=== PATIENT | female | born 1945 | race Caucasian/White ===

== ENCOUNTER 2019-09-05 10:52 | Inpatient (IN) | payer MEDICARE, MEDICAID ==
[~2019-09-05] VITALS: Ht 165.1 cm; Wt 84.2 kg
[~2019-09-05 10:52] MED LIST: ACETAMINOPHEN W1 TA6 PO; AMBIEN 5MG TABLE5 MG PO; FLONASE NASAL S16 GM NS; IPRATROPIUM BROM3 M1 IH; LANTUS100 U/ML SQ; METFORMIN500 MG PO; PERFOROMIS20 MCG/2 M IH; PREDNISONE20 MG PO; PRILOSEC 20MG20 MG PO; PROVENTIL0.09 MG/A1 IH; PROZAC20 MG PO; PULMICORT0.5 MG/2 M IH; SINGULAIR10 MG PO; SKELAXIN800 MG PO; SYNTHROID0.075 MG PO; TRAZADONE HYDR100 MG PO; ZITHROMAX500 M2 PO; ZYRTEC10 MG PO
[2019-09-05] MEDS ORDERED: LASIX 20MG TABL20 MG PO (11:16)
[2019-09-05] MEDS ORDERED: DULCOLAX STOOL100 MG PO (11:20)
[2019-09-05] MEDS ORDERED: CARDIZEM CD 12120 MG PO (11:21)
[2019-09-05] MEDS ORDERED: CYMBALTA 60MG60 MG PO (11:22)
[2019-09-05 11:23] LABS: BASO % 0.4 % (0.0-2.0); EOS # 0.1 (0.0-0.7); EOS % 0.8 % (0-4.0); GRAN # 5.4 (1.4-6.5); GRAN % 75.8 % (42.2-75.2); HEMATOCRIT 39.7 % (37.0-47.0); HEMOGLOBIN 13.1 g/dl (12.5-16.0); LYMPH % 14.2 % (20.0-51.0); MEAN CELL VOLUME 93 fl (80.0-100.0); MEAN CORPUSCULAR HEMOGLOBIN 31 pg (27.0-31.0); MEAN CORPUSCULAR HGB CONC 33 g/dl (33.0-37.0); MEAN PLATELET VOLUME 9.2 fl (7.4-10.4); MONO # 0.6 (0.1-0.6); MONO % 8.5 % (1.7-9.3); PLATELET COUNT 211 K/mm3 (130-400); RED BLOOD COUNT 4.27 M/mm3 (4.10-5.30); REDCELL DISTRIBUTION WIDTH-CV 12.7 % (11.5-14.5)
[2019-09-05] MEDS ORDERED: SINGULAIR 110 MG/TAB PO (11:23)
[2019-09-05] MEDS ORDERED: ZYRTEC 10MG10 MG PO (11:23)
[2019-09-05] MEDS ORDERED: METAXALL800 MG PO (11:24)
[2019-09-05] MEDS ORDERED: NORCO 325 MG-7.1 TAB PO (11:24)
[2019-09-05] MEDS ORDERED: MUCINEX1200 MG PO (11:24)
[2019-09-05] MEDS ORDERED: MELATIN 3 MG-11 TAB PO (11:25)
[2019-09-05] MEDS ORDERED: ALIGN (11:25)
[2019-09-05] MEDS ORDERED: MIRALAX PA17 GM/Dose PO (11:25)
[2019-09-05 11:29] LABS: INR 0.9 (0.8-3.0); PROTHROMBIN TIME 10.1 SECONDS (9.7-12.8)
[2019-09-05 11:32] LABS: PARTIAL THROMBOPLASTIN TIME 35.9 SECONDS (26.0-37.0)
[2019-09-05] MEDS ORDERED: BYETTA 5MC300 MCG/SY SQ (11:34)
[2019-09-05] MEDS ORDERED: FLECTOR1.3% (11:38)
[2019-09-05 11:41] LABS: ALANINE AMINOTRANSFERASE 17 U/L (4-34); ALBUMIN 4.5 gm/dL (3.5-5.0); ALKALINE PHOSPHATASE 86 U/L (50-136); ANION GAP 8 mmol/L (7-16); AST,SGOT 26 U/L (15-37); BILIRUBIN,TOTAL 0.5 mg/dL (0.0-1.0); BLOOD UREA NITROGEN 8 mg/dL (7-17); CALCIUM 8.9 mg/dL (8.4-10.2); CARBON DIOXIDE 31 mmol/L (22-30); CHLORIDE 96 mmol/L (98-107); CREATININE, serum 0.68 (0.52-1.25); GLUCOSE 157 mg/dL (74-106); POTASSIUM 3.7 mmol/L (3.4-5.0); SODIUM 134 mmol/L (137-145); TOTAL PROTEIN 7.3 gm/dL (6.4-8.2)
[2019-09-05 11:53] LABS: TROPONIN-I < 0.012 ng/mL (0.000-0.035)
[2019-09-05 13:56] VITALS: BP 137/79; PULSE 105; TEMP 99.4
--- NOTE | 2019-09-05 17:28 | NUR ---
Assessment completed, alert/oriented, denies pain, patient reports "fast heart rate" for a couple days, she is tachycardic at 110 upon arrival to [facility], other vital signs stable, heart irregular/ A.fib on tele, Cardiology consulted, has Cardizem gtt at 10mg/hr at this time/ will adjust per protocol, she is on her home baseline of 3L.o2 NC, hx of COPD and Pulm consulted as well, I have notified of her arrival to [facility], I ahve also called consults to pulm and cards, home meds/allergies/pharmacy reviewed, patient denies needs at this time
[2019-09-05 17:36] VITALS: BP 137/79; PULSE 100
[2019-09-05 18:04] VITALS: BP 160/91; PULSE 107; TEMP 99.3
[2019-09-05 20:00] VITALS: BP 146/82; PULSE 98; TEMP 99.3
[2019-09-06] VITALS: BP 142/93; PULSE 102; TEMP 98
--- NOTE | 2019-09-06 02:07 | NUR ---
1954 - THIS RN WAS CALLED AND NOTIFIED BY HOA THAT PT CONVERTED TO SR C BBB. 1999 - RT CALLED FOR EKG. 2119 - EKG DONE, PT ON SR WITH RIGHT BBB. SEE REPORT FOR REFERENCE.
[2019-09-06 04:00] VITALS: BP 137/88; PULSE 77; TEMP 98.5
--- NOTE | 2019-09-06 08:22 | NUR ---
REPORT GIVEN TO LISSETTE BALDWIN. PT LEFT UNIT FOR EGD PROCEDURE.
--- NOTE | 2019-09-06 11:30 | NUR ---
NAHUN met with the patient to discuss discharge. The patient lives in [place] with her daughter, Phoebe (ph#[phone]). She reports needing occasional assistance with bathing and has an electric wheelchair, walker, and home oxygen (3 liters) from [employer]. She states that she primarily uses the electric wheelchair. She has private duty services from [facility]. She states that they help her with bathing, shopping, housekeeping, and meal prep. She states that due to COVID-19, they are only able to help her with shopping right now. The patient's PCP is Dr. Prem Brown in [place] and she receives her medications at [facility] in [place]. She reports no difficulties obtaining her meds. The patient provided SW with a copy of her advanced directives. NAHUN placed the copy in the patient's chart. The patient's DPOA-HC is her son, Lalit Rausch (ph#[phone]). He lives in [place]. The patient reports that she used to have home health services from [facility] in he past and she states that she would be interested in home health through them again. NAHUN contacted and faxed a referral to Hilaria at [facility]. Hilaria reports that they are able to accept the patient for services. NAHUN to inform the patient. NAHUN contacted and updated the patient's daughter, Phoebe. Phoebe was in agreeance to the decision for home health. NAHUN to continue to follow.
[2019-09-06 12:00] VITALS: BP 150/83; PULSE 97
--- NOTE | 2019-09-06 18:36 | NUR ---
Pt has had a busy day. Pt had an EGD this AM, and they proceeded to do an esophageal dilitation. Pt came off cardizem drip at approximately 1500. VSS. No further concerns. Call light within reach.
[2019-09-06 18:55] VITALS: BP 175/62; PULSE 87; TEMP 97.8
[2019-09-06 20:00] VITALS: BP 142/93; PULSE 90
[2019-09-07] VITALS: BP 154/75; PULSE 89; TEMP 98.5
[2019-09-07 03:36] VITALS: BP 141/82; PULSE 87; TEMP 98
[2019-09-07 06:13] LABS: HEMATOCRIT 37.4 % (37.0-47.0); HEMOGLOBIN 12.3 g/dl (12.5-16.0); MEAN CELL VOLUME 92 fl (80.0-100.0); MEAN CORPUSCULAR HEMOGLOBIN 30 pg (27.0-31.0); MEAN CORPUSCULAR HGB CONC 33 g/dl (33.0-37.0); MEAN PLATELET VOLUME 10.1 fl (7.4-10.4); PLATELET COUNT 243 K/mm3 (130-400); RED BLOOD COUNT 4.08 M/mm3 (4.10-5.30); REDCELL DISTRIBUTION WIDTH-CV 12.7 % (11.5-14.5)
[2019-09-07 06:22] LABS: CALCIUM 8.4 mg/dL (8.4-10.2); CREATININE, serum 0.73 (0.52-1.25); POTASSIUM 3.9 mmol/L (3.4-5.0)
[2019-09-07 07:13] LABS: BAND 18 % (0-10); LYMPHOCYTE 4 % (20.0-51.0); NEUTROPHILS 78 % (42.0-75.2); PLATELET ESTIMATE NORMAL (NORMAL)
--- NOTE | 2019-09-07 07:24 | NUR ---
report given to LISSETTE Donovan.
[2019-09-07 08:00] VITALS: BP 159/99; PULSE 90
--- NOTE | 2019-09-07 08:00 | NUR ---
Patient sitting on edge of bed. Assessment complete. Diminished lung sounds to bilateral lobes. 8 units of insulin given for BS of 307. IV to LAC is CDI. Medications given per order. No further needs at this time. Will continue to monitor.
--- NOTE | 2019-09-07 10:17 | NUR ---
Respiratory in room for breathing treatment.
--- NOTE | 2019-09-07 10:54 | NUR ---
The patient is to discharge back home with her daughter today, 09/06, with home health services for penitentiary/PT/OT through [facility]. NAHUN notified and faxed discharge orders to Hilaria at [facility]. No additional needs at this time.
[2019-09-07] MEDS ORDERED: ELIQUIS 5MG PO (12:26)
--- NOTE | 2019-09-07 12:30 | NUR ---
Discharge education provided to patient. Educated on signs and symptoms of infection. Educated on when to call provider. Patient educated on all new medications and follow up appointments. All questions answered. INT dicontinued, catheter tip intact. Patient out by wheelchair with staff.
== END 2019-09-07 12:45 | disposition home or self-care (01) | DRG 308 ==
LOC: COL.ER 10:52 → EU 13:00 → COL.ER 13:00 → EU 09-07 12:45
PROVIDERS: Family Medicine; Internal Medicine Gastroenterology; ADMIT Student in an Organized Health Care Education/Training Program
PROC: 0DB78ZX Excision of Stomach, Pylorus, Via Natural or Artificial Opening Endoscopic, Diagnostic (ICD-10-PCS; principal; 2019-09-06 08:00)
DX: I48.92 Unspecified atrial flutter (principal); I50.23 Acute on chronic systolic (congestive) heart failure; E87.3 Alkalosis; M79.7 Fibromyalgia; J44.9 Chronic obstructive pulmonary disease, unspecified; F32.9 Major depressive disorder, single episode, unspecified; E78.5 Hyperlipidemia, unspecified; G47.9 Sleep disorder, unspecified; I27.20 Pulmonary hypertension, unspecified; I45.10 Unspecified right bundle-branch block; I35.0 Nonrheumatic aortic (valve) stenosis; M19.90 Unspecified osteoarthritis, unspecified site; K22.2 Esophageal obstruction; K29.30 Chronic superficial gastritis without bleeding; K44.9 Diaphragmatic hernia without obstruction or gangrene; R13.10 Dysphagia, unspecified; I25.10 Atherosclerotic heart disease of native coronary artery without angina pectoris; G47.33 Obstructive sleep apnea (adult) (pediatric); G89.29 Other chronic pain; E03.9 Hypothyroidism, unspecified; Z99.81 Dependence on supplemental oxygen; Z87.891 Personal history of nicotine dependence; Z90.710 Acquired absence of both cervix and uterus; Z87.01 Personal history of pneumonia (recurrent); R73.9 Hyperglycemia, unspecified; D72.829 Elevated white blood cell count, unspecified; T38.0X5A Adverse effect of glucocorticoids and synthetic analogues, initial encounter
CPT/HCPCS: 99223-AI; 99233-AI; J1815; J1940; J2704; J2920

== ENCOUNTER → 2020-04-29 | Outpatient (CLI) | payer MEDICARE, MEDICAID ==
[~2020-04-29] MED LIST changes: +ALIGN; +ANORO IH; +BYETTA 5MC300 MCG/SY SQ; +CARDIZEM CD 12120 MG PO; +CORRECTOL5 MG; +CYMBALTA 60MG60 MG PO; +DULCOLAX STOOL100 MG PO; +ELIQUIS 5MG PO; +FLECTOR1.3%; +FLEXERIL 1010 MG/TAB; +FORTICAL200 IU/ACT NS; +LASIX 20MG TABL20 MG PO; +LIDODERM 5% PATC1 EA TP; +MELATIN 3 MG-11 TAB PO; +METAXALL800 MG PO; +MIRALAX PA17 GM/Dose PO; +MUCINEX1200 MG PO; +NORCO 325 MG-7.1 TAB PO; +PREDNISONE10 MG PO; +PROBIOTIC ACID1 EAC3 PO; +RECTICARE5%; +ROXICODONE15 MG PO; +SINGULAIR 110 MG/TAB PO; +THERAGRAN TAB1 UDTAB PO; +TUMS500 MG; +TYLENOL 325MG325 MG PO; +ZYRTEC 10MG10 MG PO
== END ==
LOC: COL.RAD 10:52
DX: S32.000A Wedge compression fracture of unspecified lumbar vertebra, initial encounter for closed fracture (principal); M43.8X4 Other specified deforming dorsopathies, thoracic region; Z98.1 Arthrodesis status

== ENCOUNTER 2022-01-30 12:55 | Emergency (ER) | payer MEDICARE, MEDICAID ==
[~2022-01-30] VITALS: Ht 165.1 cm; Wt 45.5 kg
[~2022-01-30 12:55] MED LIST changes: +ALDACTONE 25MG25 M1 PO; +ATARAX50 MG PO; +ATIVAN 0.50.5 MG/TAB PO; +CARDIZEM SR 60M60 MG PO; +DESYREL 50MG50 MG PO; +FENTANYL 25 MCG TD; +FERROUSAL325 MG PO; +INCRUSE EL62.5 MCG/A IH; +LANOXIN 0.120.125 MG PO; +LEVAQUIN 5500 MG/TA1 PO; +MEDROL 4MG DOSPA4 MG PO; +REMERON 15M15 MG/TA1 PO; +ROXICODONE 55 MG/TAB PO
[2022-01-30 13:06] VITALS: TEMP 98.2
[2022-01-30 14:12] LABS: BASO % 0.3 % (0.0-2.0); EOS # 0.2 K/mm3 (0.0-0.7); EOS % 1.2 % (0.0-4.0); GRAN # 10.9 K/mm3 (1.4-6.5); GRAN % 84.3 % (42.2-75.2); HEMOGLOBIN 10.9 g/dl (12.5-16.0); LYMPH % 7.9 % (20.0-51.0); MEAN CELL VOLUME 90 fl (80.0-100.0); MEAN CORPUSCULAR HEMOGLOBIN 30 pg (27-31); MEAN CORPUSCULAR HGB CONC 33 g/dl (33.0-37.0); MEAN PLATELET VOLUME 8.7 fl (7.4-10.4); MONO # 0.8 K/mm3 (0.1-0.6); PLATELET COUNT 406 K/mm3 (130-400); RED BLOOD COUNT 3.68 M/mm3 (4.10-5.30); REDCELL DISTRIBUTION WIDTH-CV 14.2 % (11.5-14.5)
[2022-01-30 14:14] LABS: HEMATOCRIT 33.2 % (37.0-47.0)
[2022-01-30 14:29] LABS: ALBUMIN 3.6 gm/dL (3.4-4.8); BILIRUBIN,TOTAL 0.3 mg/dL (0.2-1.2); C-REACTIVE PROTEIN 1.66 mg/dL (0.00-0.50); CALCIUM 9.1 mg/dL (8.4-10.2); CREATININE, serum 0.67 mg/dL (0.57-1.11); POTASSIUM 3.1 mmol/L (3.5-4.5); TOTAL PROTEIN 6.6 gm/dL (6.2-8.1)
[2022-01-30 14:36] LABS: ERYTHROCYTE SEDIMENTATION RATE 35 mm/hr (0-30)
[2022-01-30] MEDS ORDERED: LASIX 40MG TABL40 MG PO ×2 (18:31→18:32)
[2022-01-30 18:49] VITALS: BP 118/73; PULSE 91
== END 2022-01-30 18:49 | disposition short-term general hospital (02) ==
LOC: COL.ER 12:55
PROVIDERS: Emergency Medicine
DX: T84.090A Other mechanical complication of internal right hip prosthesis, initial encounter (principal); D72.829 Elevated white blood cell count, unspecified; E87.6 Hypokalemia; F41.9 Anxiety disorder, unspecified; R79.82 Elevated C-reactive protein (CRP); R70.0 Elevated erythrocyte sedimentation rate; Z87.891 Personal history of nicotine dependence; Z99.81 Dependence on supplemental oxygen
CPT/HCPCS: J2060; J2405; J3010; J7030; Q9967